=== PATIENT | male | born 1975 | race Caucasian/White ===

== ENCOUNTER 2021-05-25 21:02 | Inpatient (IN) ==
[2021-05-25] MEDS ORDERED: NS 0.9% 1000 ml BAG 2,000 ML IV ONE (21:14)
[2021-05-25] MEDS ORDERED: Azithromycin 500 mg/250 ml NS 500 MG/250 ML BAG IVPB ONE (21:14)
[2021-05-25] MEDS ORDERED: cefTRIAXone 1 gm/50 mL NS BAG 1 GM/50 ML BAG IV ONE (21:14)
[2021-05-25] MEDS ORDERED: Azithromycin 500 mg/250 ml NS 500 MG/250 ML BAG ONE (21:20)
[2021-05-25 21:56] LABS: Hematocrit 39 % (42-52); Mean Corpuscular HGB Conc 34 g/dL (31-36); Mean Corpuscular Hemoglobin 30 pg (27-31); Mean Corpuscular Volume 88 fL (80-94); Mean Platelet Volume 7.1 fL (7.4-10.4); Platelet Count 721 10^3/uL (150-450); Red Blood Count 4.37 10^6 /uL (4.18-5.48); Red Cell Distribution Width 13 % (10-15); White Blood Count 19.7 10^3/uL (3.5-10.8)
[2021-05-25 22:13] LABS: Albumin 2.7 g/dL (3.2-5.2); Albumin/Globulin Ratio 0.5 (1-3); C Reactive Protein 326.94 mg/L (<8.01); Calcium 8.4 mg/dL (8.6-10.3); Globulin 5.1 g/dL (2-4); Potassium 4.2 mmol/L (3.5-5.0); Total Bilirubin 0.7 mg/dL (0.2-1.0); Total Protein 7.8 g/dL (6.4-8.9); eGFR CKD-EPI 88.1 (>60)
[2021-05-25 22:14] LABS: Troponin I 0.02 ng/mL (<0.03)
[2021-05-25] MEDS ORDERED: Iohexol 350 (CONTRAST) 500 ML MDV IV ONE (22:17)
[2021-05-25 22:26] LABS: ABS Basophils 0.1 10^3/ul (0-0.2); ABS Lymphocytes 0.9 10^3/ul (1.0-4.8); ABS Monocytes 0.5 10^3/ul (0-0.8); ABS Neutrophils 18.1 10^3/ul (1.5-7.7); Lymphocyte % 4.6 %
[2021-05-25] MEDS ORDERED: Morphine 2 MG/ML SYRINGE IV ONE (22:59)
[2021-05-25] MEDS ORDERED: Vancomycin 1,000 MG in NS 0.9% 250 ml 250 ML IVPB ONE (23:07)
[2021-05-25] MEDS ORDERED: NS 0.9% 1000 ml BAG 1,000 ML IV SCH (23:15)
[2021-05-25] MEDS ORDERED: Cefepime 2 GM IV - ED ONCE IV ONE (23:15)
[2021-05-25] MEDS ORDERED: Morphine 4 MG/ML VIAL (1 ml) ONE (23:26)
[2021-05-25] MEDS ORDERED: Vancomycin per Pharmacy 1 EA NOTE FOLLOW UP SCH (23:45)
[2021-05-25] MEDS ORDERED: Zosyn per Pharmacy NOTE FOLLOW UP SCH (23:45)
[2021-05-25] MEDS ORDERED: Piperacillin/Tazobac ADVAN 3.375 GM in NS 0.9% 100 ml BAG 100 ML IV ONE (23:49)
[2021-05-26] MEDS: Enoxaparin 40 MG/0.4 ML SYR SUBCUT SCH ×2 (00:07→21:03)
[2021-05-26 04:30] LABS: Hematocrit 35 % (42-52); Hemoglobin 11.7 g/dL (14.0-18.0); Mean Corpuscular HGB Conc 33 g/dL (31-36); Mean Corpuscular Hemoglobin 30 pg (27-31); Mean Corpuscular Volume 90 fL (80-94); Mean Platelet Volume 6.9 fL (7.4-10.4); Platelet Count 553 10^3/uL (150-450); Red Blood Count 3.96 10^6 /uL (4.18-5.48); Red Cell Distribution Width 13 % (10-15)
[2021-05-26 04:36] LABS: ABS Lymphocytes 0.8 10^3/ul (1.0-4.8); ABS Monocytes 0.1 10^3/ul (0-0.8); Eosinophil % 0.1 %; Lymphocyte % 7.3 %
[2021-05-26 04:50] LABS: Albumin 2.3 g/dL (3.2-5.2); Albumin/Globulin Ratio 0.5 (1-3); Calcium 7.5 mg/dL (8.6-10.3); Direct Bilirubin 0.2 mg/dL (0.03-0.18); Globulin 4.2 g/dL (2-4); Indirect Bilirubin 0.4 mg/dL (0.3-1.0); Total Bilirubin 0.6 mg/dL (0.2-1.0); Total Protein 6.5 g/dL (6.4-8.9)
[2021-05-26 04:53] LABS: Potassium 5.1 mmol/L (3.5-5.0)
[2021-05-26] MEDS: ZOSYN 3.375 GM Q8H per EXTENDED INFUSION IV SCH ×3 (05:39→21:03)
[2021-05-26] MEDS ORDERED: Lactated Ringers 1000 ml BAG 1,000 ML IV ONE (07:43)
[2021-05-26] MEDS ORDERED: Cefepime 2 GM in Dextrose 2 GM/50 ML BAG IV SCH (08:00)
[2021-05-26] MEDS: Vancomycin 1,750 MG in NS 0.9% 500 ml BAG 500 ML IVPB SCH ×2 (09:03→21:11)
[2021-05-26] MEDS ORDERED: Succinylcholine 200 mg VIAL 20 mg/ml 10 ml VIAL (200 mg) ONE (11:13)
[2021-05-26] MEDS ORDERED: Rocuronium 50 mg VIAL 10 mg/ml 5 ml VIAL (50 mg) ONE ×2 (11:14→11:37)
[2021-05-26] MEDS ORDERED: Propofol 10 mg/ml 100 ML BTL 100 ML ONE ×2 (11:41→13:50)
[2021-05-26] MEDS: Propofol 10 mg/ml 100 ML BTL 100 ML IV SCH ×4 (11:45→21:03)
[2021-05-26] MEDS ORDERED: Lidocaine 1% VIAL 10 MG/ML VIAL INJ ONE (12:00)
[2021-05-26] MEDS ORDERED: Lidocaine 1% VIAL 10 MG/ML VIAL ONE (12:01)
[2021-05-26] MEDS ORDERED: fentaNYL 250 mcg/5 ml 50 MCG/ML 5 ml VIAL (250 MCG) ONE (12:02)
[2021-05-26 13:49] LABS: Urine Appearance Cloudy; Urine Bilirubin Negative (Negative); Urine Blood Negative (Negative); Urine Color Yellow; Urine Glucose Negative (Negative); Urine Ketones Negative (Negative); Urine Nitrite Negative (Negative); Urine Protein Negative (Negative); Urine Specific Gravity 1.025 (1.002-1.030); Urine Urobilinogen Negative (Negative)
[2021-05-26 14:54] LABS: PCO2 Arterial 64 mmHg (35-45); PO2 Arterial 78 mmHg (80-100)
[2021-05-26 15:03] LABS: Body Fluid Appearance Cloudy; Body Fluid Source PLEURAL
[2021-05-26 15:26] LABS: Body Fluid WBC 162729 /mcL
[2021-05-26] MEDS: Chlorhexidine MOUTHWASH 0.12% 15 ML UDC TOPICAL SCH ×2 (16:27→21:03)
[2021-05-26] MEDS: Pantoprazole VIAL 40 MG VIAL IV SCH (16:28)
[2021-05-26 16:45] LABS: Hematocrit 34 % (42-52); Hemoglobin 11.6 g/dL (14.0-18.0); Mean Corpuscular HGB Conc 34 g/dL (31-36); Mean Corpuscular Hemoglobin 31 pg (27-31); Mean Corpuscular Volume 90 fL (80-94); Mean Platelet Volume 6.6 fL (7.4-10.4); Platelet Count 539 10^3/uL (150-450); Red Blood Count 3.78 10^6 /uL (4.18-5.48); Red Cell Distribution Width 14 % (10-15); White Blood Count 16.5 10^3/uL (3.5-10.8)
[2021-05-26 16:48] LABS: Calcium 8.2 mg/dL (8.6-10.3); Magnesium 2.2 mg/dL (1.9-2.7); Phosphorus 5.1 mg/dL (2.5-5.0); eGFR CKD-EPI 96.9 (>60)
[2021-05-26 16:53] LABS: Potassium 5.4 mmol/L (3.5-5.0)
[2021-05-26] MEDS ORDERED: SODIUM ZIRCONIUM CYCLOSILICATE 10 GM PACKET PO ONE (17:18)
[2021-05-26] MEDS ORDERED: Dextrose 50% Syringe 50 ml 25 GM/50 ML SYRINGE IV PUSH ONE (17:23)
[2021-05-26 17:51] LABS: Body Fluid Mono 2 %; Body Fluid Total Cells Counted 200
[2021-05-26 18:02] LABS: ABS Lymphocytes 0.6 10^3/ul (1.0-4.8); ABS Monocytes 0.1 10^3/ul (0-0.8); ABS Neutrophils 15.7 10^3/ul (1.5-7.7); Eosinophil % 0.1 %; Lymphocyte % 3.9 %
[2021-05-26 18:03] LABS: Polychromasia 1+
[2021-05-26] MEDS ORDERED: Dextrose 50% Syringe 50 ml 25 GM/50 ML SYRINGE IV PUSH PRN (18:07)
[2021-05-26 21:15] LABS: PCO2 Arterial 54 mmHg (35-45); PO2 Arterial 112 mmHg (80-100)
[2021-05-26 21:52] LABS: Blood Urea Nitrogen 22 mg/dL (6-24); CO2 Carbon Dioxide 24 mmol/L (22-32); Calcium 8.1 mg/dL (8.6-10.3); Chloride 100 mmol/L (101-111); Glucose 122 mg/dL (70-100); Sodium 131 mmol/L (135-145); eGFR CKD-EPI 78.2 (>60)
[2021-05-26 21:56] LABS: Anion Gap 7 mmol/L (2-11)
[2021-05-27] MEDS: Propofol 10 mg/ml 100 ML BTL 100 ML IV SCH ×7 (00:26→20:56)
[2021-05-27] MEDS: Chlorhexidine MOUTHWASH 0.12% 15 ML UDC TOPICAL SCH ×6 (00:26→20:49)
[2021-05-27] MEDS: ZOSYN 3.375 GM Q8H per EXTENDED INFUSION IV SCH ×3 (04:15→20:50)
[2021-05-27 05:00] LABS: Hematocrit 30 % (42-52); Hemoglobin 10.1 g/dL (14.0-18.0); Mean Corpuscular HGB Conc 33 g/dL (31-36); Mean Corpuscular Hemoglobin 30 pg (27-31); Mean Corpuscular Volume 91 fL (80-94); Mean Platelet Volume 6.9 fL (7.4-10.4); Platelet Count 426 10^3/uL (150-450); Red Blood Count 3.35 10^6 /uL (4.18-5.48); Red Cell Distribution Width 13 % (10-15); White Blood Count 12.7 10^3/uL (3.5-10.8)
[2021-05-27 05:08] LABS: ABS Lymphocytes 0.9 10^3/ul (1.0-4.8); ABS Monocytes 0.2 10^3/ul (0-0.8); ABS Neutrophils 11.5 10^3/ul (1.5-7.7); Eosinophil % 0.2 %
[2021-05-27 05:23] LABS: Magnesium 2.5 mg/dL (1.9-2.7); Potassium 4.7 mmol/L (3.5-5.0); eGFR CKD-EPI 79.8 (>60)
[2021-05-27] MEDS ORDERED: Vancomycin Trough Check NOTE FOLLOW UP ONE (08:30)
[2021-05-27] MEDS: Vancomycin 1,750 MG in NS 0.9% 500 ml BAG 500 ML IVPB SCH (09:31)
[2021-05-27 11:39] LABS: PCO2 Arterial 44 mmHg (35-45); PO2 Arterial 80 mmHg (80-100)
[2021-05-27 11:43] LABS: Total Protein, BF 1.6 g/dL; Triglycerides (BF) 88 mg/dL
[2021-05-27 13:23] LABS: Hematocrit 30 % (42-52); Hemoglobin 9.8 g/dL (14.0-18.0); Mean Corpuscular HGB Conc 32 g/dL (31-36); Mean Corpuscular Hemoglobin 29 pg (27-31); Mean Corpuscular Volume 90 fL (80-94); Mean Platelet Volume 6.9 fL (7.4-10.4); Platelet Count 475 10^3/uL (150-450); Red Blood Count 3.39 10^6 /uL (4.18-5.48); Red Cell Distribution Width 14 % (10-15); White Blood Count 14.5 10^3/uL (3.5-10.8)
[2021-05-27 13:25] LABS: ABS Eosinophils 0.1 10^3/ul (0-0.6); ABS Monocytes 0.3 10^3/ul (0-0.8); Eosinophil % 0.7 %; Nucleated Red Blood Cells % 0.1
[2021-05-27] MEDS ORDERED: fentaNYL 100 mcg/2 ml 50 MCG/ML VIAL ONE (14:01)
[2021-05-27] MEDS ORDERED: fentaNYL 100 mcg/2 ml 50 MCG/ML VIAL IV SLOW PU ONE ×2 (14:09)
[2021-05-27] MEDS: Pantoprazole VIAL 40 MG VIAL IV SCH (15:44)
[2021-05-27] MEDS ORDERED: Albuterol/Ipratropium NEB.SOL (2.5/0.5 MG) 3 ML NEB.SOLN INH PRN (18:23)
[2021-05-27] MEDS: Enoxaparin 40 MG/0.4 ML SYR SUBCUT SCH (20:49)
[2021-05-28] MEDS: Chlorhexidine MOUTHWASH 0.12% 15 ML UDC TOPICAL SCH (00:17)
[2021-05-28] MEDS: Propofol 10 mg/ml 100 ML BTL 100 ML IV SCH (00:17)
[2021-05-28 01:23] VITALS: BP 109/53
[2021-05-29 12:17] LABS: Albumin, BF 0.6 g/dL; Glucose, BF 116 mg/dL
== END 2021-05-28 01:26 | disposition short-term general hospital (02) | DRG 710 ==
LOC: ED 21:02 → ICU 21:09
PROVIDERS: ADMIT Internal Medicine; ATTEND Internal Medicine